=== PATIENT | female | born 1975 ===

== ENCOUNTER 2020-11-17 12:44 | Inpatient (IN) | payer OTHER ==
[~2020-11-17] VITALS: Ht 167.6 cm; Wt 104.3 kg
== END 2020-11-25 10:13 | disposition home or self-care (01) | DRG 743 ==
LOC: EDBD 12:44 → MEDJ 12:44 → OB/GYN 11-19 23:07
PROVIDERS: ADMIT Internal Medicine; ATTEND Internal Medicine
PROC: 0UT90ZZ Resection of Uterus, Open Approach (ICD-10-PCS; principal; 2020-11-17)
PROC: 0UT20ZZ Resection of Bilateral Ovaries, Open Approach (ICD-10-PCS; 2020-11-17)
PROC: 0UT70ZZ Resection of Bilateral Fallopian Tubes, Open Approach (ICD-10-PCS; 2020-11-17)
PROC: BW21Y0Z Computerized Tomography (CT Scan) of Abdomen and Pelvis using Other Contrast, Unenhanced and Enhanced (ICD-10-PCS; 2020-11-18)
PROC: 30233N1 Transfusion of Nonautologous Red Blood Cells into Peripheral Vein, Percutaneous Approach (ICD-10-PCS; 2020-11-24)
DX: D25.1 Intramural leiomyoma of uterus (principal); D25.2 Subserosal leiomyoma of uterus; D19.1 Benign neoplasm of mesothelial tissue of peritoneum; N83.202 Unspecified ovarian cyst, left side; N80.1 Endometriosis of ovary; D64.9 Anemia, unspecified; N92.0 Excessive and frequent menstruation with regular cycle